=== PATIENT | female | born 1985 | race Caucasian/White ===

== ENCOUNTER 2016-08-17 19:50 | Emergency (ER) | payer SELFPAY ==
[~2016-08-17 19:50] MED LIST: CYMBALTA60 M1 PO; MULTIVITAMIN1 SGL PO; SUDAFED 24-HOU240 MG PO
[2016-08-17] MEDS ORDERED: IPRATROPIUM BROM3 M1 IH (22:18)
[2016-08-17] MEDS ORDERED: PREDNISONE10 MG PO (22:18)
== END 2016-08-17 22:45 | disposition home or self-care (01) ==
LOC: ED 19:50
DX: J45.901 Unspecified asthma with (acute) exacerbation (principal); J20.9 Acute bronchitis, unspecified; G43.909 Migraine, unspecified, not intractable, without status migrainosus; B34.9 Viral infection, unspecified
CPT/HCPCS: J1885; J2405; J7030; J7512

== ENCOUNTER 2016-09-08 18:19 | Emergency (ER) | payer OTHER ==
[~2016-09-08 18:19] MED LIST changes: +IPRATROPIUM BROM3 M1 IH; +PREDNISONE10 MG PO
== END 2016-09-08 20:16 | disposition home or self-care (01) ==
LOC: ED 18:19
DX: R05 Cough (principal); F15.10 Other stimulant abuse, uncomplicated; F12.10 Cannabis abuse, uncomplicated
CPT/HCPCS: J2550